=== PATIENT | female | born 1980 | race Caucasian/White ===

== ENCOUNTER 2018-12-05 02:08 | Emergency (ER) | payer MEDICARE, MEDICAID ==
[~2018-12-05] VITALS: Ht 188 cm; Wt 149.7 kg
[~2018-12-05 02:08] MED LIST: CLONAZEPAM PO; IBUPROFEN 200200 M1 PO; IBUPROFEN 800800 MG PO; NORFLEX100 MG PO; NORVASC10 MG PO; PERCOCET 5-3251 EACH PO; VICODIN ES TAB1 EACH PO; VICODIN HP 10-1 EAC1 PO
[2018-12-05] MEDS ORDERED: SYNTHROID50 MCG PO (02:21)
[2018-12-05] MEDS ORDERED: POTASSIUM99 M1 PO (02:22)
[2018-12-05] MEDS ORDERED: HYZAAR 50-12.51 EACH PO (02:22)
[2018-12-05] MEDS ORDERED: MULTIVITAMINS PO (02:23)
[2018-12-05] MEDS ORDERED: KEFLEX500 M1 PO (04:59)
[2018-12-05] MEDS ORDERED: BACTRIM DS TAB1 EACH PO (04:59)
[2018-12-05 05:05] VITALS: BP 135/80
--- NOTE | 2018-12-05 16:23 | EKG ---
[place] [address] ELECTROCARDIOGRAM REPORT Name: OSCAR PERDOMO Room: [facility]#: [id number] Admission: 12/05/18 Attend Phys: Discharge: 12/05/18 Date of : 78 Report #: [id number] THIS REPORT FOR: //name// [facility] ED Test Date: 2018-12-05 Test Time: 02:28:22 Pat Name: OSCAR HUBBARDLEY Department: Room: Gender: F Scientific Programmer: NIDIA : 1980 Requested By: Wali Goins Order Number: [id number] MD: Gerson Diaz Measurements Intervals [place] Rate: 109 P: 65 TX: 159 QRS: 14 QRSD: 113 T: 11 QT: 361 QTc: 487 Interpretive Statements Sinus tachycardia Probable left atrial enlargement Consider anterior infarct No previous ECG available for comparison Electronically Signed On 12-05-2018 16:23:13 CDT by Gerson Diaz [email or web address] <ELECTRONICALLY SIGNED> By: Gerson Diaz MD, FACC 12/05/18 1623 0228 [id number] Gerson Diaz MD, FACC /EPI
== END 2018-12-05 05:05 | disposition home or self-care (01) ==
LOC: M.ERS 02:08
DX: M79.605 Pain in left leg (principal); J45.909 Unspecified asthma, uncomplicated; F31.9 Bipolar disorder, unspecified; I10 Essential (primary) hypertension; F17.210 Nicotine dependence, cigarettes, uncomplicated; Z88.5 Allergy status to narcotic agent